=== PATIENT | male | born 1975 | race Two or more races ===

== ENCOUNTER 2023-09-24 10:53 | Outpatient (CLI) | payer BC, SELFPAY ==
--- NOTE | 2023-09-24 11:01 | XRR_ITS ---
PROCEDURE INFORMATION: Exam: XR Lumbosacral Spine Exam date and time: 09/24/2023 11:28 AM Age: 48 years old Clinical indication: Low back pain; Additional info: Lower back pain TECHNIQUE: Imaging protocol: Radiologic exam of the lumbosacral spine. Views: 2 or 3 views. COMPARISON: No relevant prior studies available. FINDINGS: Bones/joints: Spinal alignment is normal. Vertebral body height is maintained. Intervertebral disc height is maintained. Mild lower lumbar facet spondylosis. Small multilevel anterior vertebral osteophytes. No visible pars defects. The visible portion of the pelvis and sacrum is intact. Soft tissues: Visible soft tissues are unremarkable. XR/XR lumbar spine 2-3V* [id number] IMPRESSION: Mild lower lumbar facet degeneration.
== END 2023-09-24 10:54 | disposition home or self-care (01) ==
LOC: RAD 10:58
PROVIDERS: PCP Family Medicine; Visit Provider Family Medicine
DX: M47.896 Other spondylosis, lumbar region; M54.50 Low back pain, unspecified
CPT/HCPCS: 72100; 80053

== ENCOUNTER 2023-11-01 13:28 | Outpatient (RCR) | payer BC, SELFPAY | END 2023-11-21 23:59 | disposition home or self-care (01) | LOC: SPT 13:28 | PROVIDERS: PCP Family Medicine; Visit Provider Family Medicine | DX: M54.50 Low back pain, unspecified (principal); G89.29 Other chronic pain | CPT/HCPCS: 97110; 97161 ==

== ENCOUNTER 2023-11-25 13:07 | Outpatient (RCR) | payer BC, SELFPAY | END 2023-12-22 23:59 | disposition home or self-care (01) | LOC: SPT 13:07 | PROVIDERS: PCP Family Medicine; Visit Provider Family Medicine | DX: M54.50 Low back pain, unspecified (principal); G89.29 Other chronic pain | CPT/HCPCS: 97110 ==

== ENCOUNTER → 2025-04-03 10:33 | Outpatient (BNVA) | payer OTHER, SELFPAY | PROVIDERS: PCP Family Medicine; Visit Provider Family Medicine | DX: Z12.5 Encounter for screening for malignant neoplasm of prostate (principal); I10 Essential (primary) hypertension | CPT/HCPCS: 80053; 80061; 84153; 84439; 84443; 85025 ==